=== PATIENT | male | born 1985 ===

== ENCOUNTER 2024-03-17 21:30 | Emergency (ER) | payer MEDICAID ==
[2024-03-17] MEDS ORDERED: Sodium Chloride 0.9% 10 ML Syringe FLUSH PRN (21:51)
[2024-03-17] MEDS: LORazepam 2 MG/ML SDV IVPUSH ONE (22:04)
[2024-03-17] MEDS: Ondansetron 4 MG/2 ML SDV IVPUSH ONE (22:05)
[2024-03-17] MEDS: Sodium Chloride 0.9% 1,000 ML IV ONE (22:05)
[2024-03-17 22:07] LABS: HEMATOCRIT 43.9 % (38.3-50.1); HEMOGLOBIN 14.3 g/dL (12.9-17.7); MEAN CORPUSCULAR HEMOGLOBIN 30.9 pg (27.0-33.3); MEAN CORPUSCULAR HGB CONC 32.6 g/dL (28.7-35.3); MEAN CORPUSCULAR VOLUME 94.8 fL (80.8-98.7); MEAN PLATELET VOLUME 8.1 fL (6.7-11.0); PLATELET COUNT,PLT 218 x10(3)uL (117-477); RED BLOOD CELL COUNT 4.63 x10(6)uL (3.90-5.90); RED CELL DISTRIBUTION WIDTH 14.5 % (12.4-15.0); WHITE BLOOD CELL COUNT,WBC 14.9 x10-3/uL (3.2-10.1)
[2024-03-17 22:11] LABS: LIPASE 31 U/L (16-77)
[2024-03-17 22:13] LABS: BLOOD UREA NITROGEN,BUN 12 mg/dL (7-18); BUN/CREATININE RATIO 9.2 (9-20); CALCIUM 8.6 mg/dL (8.6-10.2); CARBON DIOXIDE,CO2 26 mmol/L (21-32); CHLORIDE,CL 105 mmol/L (100-110); CREATININE 1.3 mg/dL (0.70-1.30); ESTIMATED GFR 72 mL/min (>60); GLUCOSE RANDOM 91 mg/dL (80-116); POTASSIUM,K 3.6 mmol/L (3.5-5.3); SODIUM,NA 142 mmol/L (135-145)
[2024-03-17 22:19] LABS: A/G RATIO 0.9; ALANINE AMINOTRANSFERASE,ALT 26 U/L (12-36); ALBUMIN 3.5 g/dL (3.5-5.2); ALKALINE PHOSPHATASE 89 IU/L (56-112); ASPARTATE AMNIOTRANSFERASE,AST 22 IU/L (5-25); BILIRUBIN TOTAL 0.6 mg/dL (0.1-1.3); MAGNESIUM 1.6 mg/dL (1.8-2.5); PROTEIN TOTAL,TP 7.5 g/dL (6.0-8.0)
[2024-03-17 22:22] LABS: C-REACTIVE PROTEIN < 0.50 mg/dL (<0.50)
[2024-03-17 22:48] LABS: BASOPHILS PERCENT MAN 1 % (0-2); EOSINOPHILS PERCENT MAN 1 % (0-5); LYMPHOCYTES PERCENT MAN 15 % (13-37); MONOCYTES PERCENT MAN 4 % (4-12); SEG NEUTROPHILS PERCENT MAN 79 % (46-82)
[2024-03-18] MEDS: Iopamidol 755 Mg/ML 200 ML Bottle IV ONE (00:19)
[2024-03-18] MEDS: LORazepam 2 MG/ML SDV IVPUSH ONE (01:09)
[2024-03-18 01:24] LABS: BILIRUBIN,URINE NEGATIVE (NEGATIVE); GLUCOSE,URINE NORMAL (NORMAL); KETONES,URINE NEGATIVE (NEGATIVE); LEUKOCYTE ESTERASE,URINE SMALL (NEGATIVE); NITRITE,URINE NEGATIVE (NEGATIVE); OCCULT BLOOD,URINE NEGATIVE (NEGATIVE); PROTEIN,URINE TRACE mg/dL (NEGATIVE); UROBILINOGEN,URINE 1 mg/dL (NEGATIVE)
[2024-03-18 01:27] LABS: APPEARANCE,URINE CLEAR (CLEAR); BACTERIA,URINE OCCASIONAL (NS); COLOR,URINE YELLOW (YELLOW); MUCUS,URINE FEW (NS); RBC,URINE 0-5 (0-5); SQUAMOUS EPITHELIAL CELLS,UR OCCASIONAL (NS,R,O); WBC,URINE 0-5 (0-5)
[2024-03-18 01:28] LABS: AMPHETAMINES SCREEN, URINE POSITIVE (NEGATIVE); BENZODIAZEPINES SCREEN,URINE POSITIVE (NEGATIVE); METHAMPHETAMINE SCREEN, URINE POSITIVE (NEGATIVE); THC SCREEN,URINE POSITIVE (NEGATIVE)
[2024-03-18 01:29] LABS: BARBITURATE SCREEN,URINE NEGATIVE (NEGATIVE); BUPRENORPHINE SCREEN,URINE NEGATIVE (NEGATIVE); METHADONE SCREEN, URINE NEGATIVE (NEGATIVE); OXYCODONE SCREEN,URINE NEGATIVE (NEGATIVE)
[2024-03-18] MEDS: LORazepam 1 MG Tab PO ONE (05:11)
[2024-03-18] MEDS: Saccharomyces Boulardii (Probiotic) 250 MG Cap PO ONE (05:11)
[2024-03-18] MEDS: metroNIDAZOLE 500 MG Tab PO ONE (05:11)
== END 2024-03-18 05:25 ==
LOC: FB.ED 21:30
DX: R56.9 Unspecified convulsions (principal); F10.130 Alcohol abuse with withdrawal, uncomplicated; E86.0 Dehydration; F19.10 Other psychoactive substance abuse, uncomplicated; K52.9 Noninfective gastroenteritis and colitis, unspecified; J45.909 Unspecified asthma, uncomplicated; F17.200 Nicotine dependence, unspecified, uncomplicated; Z88.8 Allergy status to other drugs, medicaments and biological substances; Z79.899 Other long term (current) drug therapy; Y90.9 Presence of alcohol in blood, level not specified
CPT/HCPCS: 36415; 74177; 80053; 80307; 81001; 83690; 83735; 85025; 86140; 96361; 96374; 96375; 96376; 99284; 99285; A9270; J2060; J2405; J7030; Q9967

== ENCOUNTER 2024-03-18 20:04 | Emergency (ER) | payer OTHER, MEDICAID ==
[2024-03-18] MEDS ORDERED: Sodium Chloride 0.9% 10 ML Syringe FLUSH PRN (20:11)
[2024-03-18] MEDS ORDERED: Naloxone 0.4 MG/ML SDV IVPUSH PRN (20:11)
[2024-03-18] MEDS: Ondansetron 4 MG/2 ML SDV IVPUSH ONE (20:33)
[2024-03-18] MEDS: Morphine 4 MG/ML VIAL IVPUSH ONE (20:34)
[2024-03-19] MEDS ORDERED: Sodium Chloride 0.9% 10 ML Syringe FLUSH PRN (00:38)
[2024-03-19 01:01] LABS: BASOPHILS ABSOLUTE AUTO 0.1 x10-3/uL (0.0-0.3); BASOPHILS PERCENT AUTO 0.7 % (0.3-3.8); EOSINOPHILS ABSOLUTE AUTO 0.1 x10-3/uL (0.0-0.6); EOSINOPHILS PERCENT AUTO 0.9 % (0.1-6.8); HEMATOCRIT 44.5 % (38.3-50.1); HEMOGLOBIN 14.7 g/dL (12.9-17.7); LYMPHOCYTES ABSOLUTE AUTO 3.8 x10-3/uL (0.5-4.5); LYMPHOCYTES PERCENT AUTO 36.4 % (15.8-45.3); MEAN CORPUSCULAR HEMOGLOBIN 31.3 pg (27.0-33.3); MEAN CORPUSCULAR VOLUME 94.7 fL (80.8-98.7); MEAN PLATELET VOLUME 8.3 fL (6.7-11.0); MONOCYTES ABSOLUTE AUTO 0.7 x10-3/uL (0.0-1.2); MONOCYTES PERCENT AUTO 7.1 % (5.5-15.2); NEUTROPHILS ABSOLUTE AUTO 5.7 x10-3/uL (1.7-6.9); NEUTROPHILS PERCENT AUTO 54.9 % (40.3-71.8); PLATELET COUNT,PLT 212 x10(3)uL (117-477); RED CELL DISTRIBUTION WIDTH 14.3 % (12.4-15.0); WHITE BLOOD CELL COUNT,WBC 10.5 x10-3/uL (3.2-10.1)
[2024-03-19] MEDS: LORazepam 2 MG/ML SDV IVPUSH ONE ×2 (01:01→01:23)
[2024-03-19] MEDS: levETIRAcetam in NaCl (iso-os) 1,000 MG in Premix Bag 1 BAG IV ONE (01:01)
[2024-03-19 01:05] LABS: BLOOD UREA NITROGEN,BUN 13 mg/dL (7-18); BUN/CREATININE RATIO 9.3 (9-20); CALCIUM 8.8 mg/dL (8.6-10.2); CARBON DIOXIDE,CO2 28 mmol/L (21-32); CHLORIDE,CL 105 mmol/L (100-110); CREATININE 1.4 mg/dL (0.70-1.30); ESTIMATED GFR 66 mL/min (>60); GLUCOSE RANDOM 99 mg/dL (80-116); POTASSIUM,K 3.9 mmol/L (3.5-5.3); SODIUM,NA 142 mmol/L (135-145)
[2024-03-19 01:11] LABS: A/G RATIO 0.9; ALANINE AMINOTRANSFERASE,ALT 24 U/L (12-36); ALBUMIN 3.5 g/dL (3.5-5.2); ALKALINE PHOSPHATASE 94 IU/L (56-112); BILIRUBIN TOTAL 0.6 mg/dL (0.1-1.3); PROTEIN TOTAL,TP 7.4 g/dL (6.0-8.0)
[2024-03-19 01:21] LABS: ASPARTATE AMNIOTRANSFERASE,AST 18 IU/L (5-25)
[2024-03-19] MEDS: Sodium Chloride 0.9% 1,000 ML IV SCH (01:24)
== END 2024-03-19 01:45 ==
LOC: FB.ED 20:04
DX: S42.034A Nondisplaced fracture of lateral end of right clavicle, initial encounter for closed fracture (principal); S16.1XXA Strain of muscle, fascia and tendon at neck level, initial encounter; S20.211A Contusion of right front wall of thorax, initial encounter; S00.93XA Contusion of unspecified part of head, initial encounter; F32.A Depression, unspecified; R45.851 Suicidal ideations; G40.501 Epileptic seizures related to external causes, not intractable, with status epilepticus; F17.200 Nicotine dependence, unspecified, uncomplicated; Z88.8 Allergy status to other drugs, medicaments and biological substances; Z79.2 Long term (current) use of antibiotics; Z79.899 Other long term (current) drug therapy; W23.1XXA Caught, crushed, jammed, or pinched between stationary objects, initial encounter
CPT/HCPCS: 36415; 70450; 71250; 72125; 72128; 73030; 80053; 83605; 83735; 85025; 96365; 96375; 99285; J1953; J2060; J2270; J2405; J7030